=== PATIENT | female | born 1955 | race Caucasian/White ===

== ENCOUNTER 2018-11-18 12:03 | Outpatient (CLI) | payer BC ==
[~2018-11-18 12:03] MED LIST: IOHEXOL 180 MG/ML 10 ML VIAL. IJ ONE; LIDOCAINE WITH 8.4% SOD BICARB 3 ML DISP.SYRIN. INJ ONE
[2018-11-18] MEDS ORDERED: IOHEXOL 180 MG/ML 10 ML VIAL. IT ONE (12:30)
[2018-11-18] MEDS ORDERED: LIDOCAINE WITH 8.4% SOD BICARB 3 ML DISP.SYRIN. INJ ONE (12:30)
[2018-11-18 13:43] VITALS: BP 128/82
--- NOTE | 2018-11-18 14:24 | NUR ---
Discharge Note: WILLIAMS PRATT Discharge instructions and discharge home medications reviewed with Patient and a copy given. All questions have been answered and understanding verbalized. Patient alert and oriented x4, follows all commands, walks without difficulty and tolerates PO fluids. The following instructions and handouts were given: Discharge Instructions for Myelogram, patient verbalized understanding. Discontinued lines and drains: NONE. Patient discharged home with friend via private vehicle.
--- NOTE | 2018-11-18 14:50 | RAD ---
Lumbar myelogram, 11/18/2018: History: Lumbar reticular apical, left-sided pain Under local anesthesia, aseptic conditions and fluoroscopic guidance a lumbar puncture was performed at the mid L2 level utilizing a 25-gauge Zachary spinal needle. Good clear CSF flow was obtained following which 14 cc of Omnipaque 180 was injected into the thecal sac. The spinal needle was then removed and hemostasis obtained. Appropriate digital imaging was then performed. 2.7 minutes of fluoroscopy time was utilized. 13 fluoroscopic spot images were recorded. The patient tolerated the procedure well and was sent to CT in good condition. The following findings are delineated on the myelogram: 1. There is a mild right convexity lumbar scoliosis. 2. There are moderate anterior extradural defects at L1-2 and L2-3 with mild anterior extradural defects at L3-4 and L4-5. There are mild posterior extradural defects at L1-2 and L2-3 with borderline narrowing of the central spinal canal at those 2 levels in the upright position. 3. No significant subluxation or instability was identified on upright lateral flexion and extension imaging. 4. There is symmetric opacification of the nerve root sleeves in the lower lumbar spine. CT of the lumbar spine-post myelogram, 11/18/2018: Multidetector CT imaging was performed with multiplanar reconstructions produced. The following findings are delineated: 1. At the L1-2 level there is moderate broad-based posterior disc bulging. There is mild facet joint arthropathy on the left. The central spinal canal is not significantly stenotic in the supine position. There is mild left foraminal narrowing. 2. At L2-3 there is a vacuum disc phenomena with endplate sclerosis, worst on the left. There is mild posterior disc bulging with abnormal tissue extending into the left neural foramen. The appearance suggests a herniated disc fragment versus scarring. There is severe associated encroachment upon the left neural foramen at this level. The central spinal canal and right neural foramina are well preserved. 3. At L3-4 there is mild posterior disc bulging. There are mild degenerative changes involving the facet joints. The central spinal canal is well-maintained. There is only mild inferior foraminal narrowing bilaterally. 4. At L4-5 there is disc space narrowing with endplate sclerosis and marginal spurring, worst on the right. There is mild posterior disc bulging and marginal spurring. There is moderate facet joint arthropathy, worse on the right. There appears to be an old laminectomy defect on the left. The central spinal canal is well-maintained. There is moderate right foraminal encroachment. There is only mild left foraminal narrowing. 5. The L5-S1 disc space is fused. There are prominent anterior and posterior spurs. There is moderate bilateral facet joint arthropathy. The thecal sac at this level is small. There is no significant narrowing of the central spinal canal. There is only mild bony foraminal narrowing on the left. IMPRESSION: 1. Mild lumbar scoliosis with moderate multilevel degenerative change as described above. 2. Fusion of the L5-S1 disc space. 3. Severe degenerative disc disease at L4-5 with moderate right foraminal encroachment. 4. Severe degenerative disc disease at L2-3 with a density encroaching upon the left neural foramen most likely representing a herniated disc fragment. PQRS Compliance Statement: One or more of the following individualized dose reduction techniques were utilized for this examination: 1. Automated exposure control 2. Adjustment of the mA and/or kV according to patient size 3. Use of iterative reconstruction technique
[2018-12-22] MEDS ORDERED: LISI10TA2 PO (14:00)
[2018-12-22] MEDS ORDERED: PRAV40TA2 PO (14:00)
[2018-12-22] MEDS ORDERED: ZALE10CA PO (14:00)
[2018-12-22] MEDS ORDERED: PANT20TA2 PO (14:00)
[2018-12-22] MEDS ORDERED: CYAN-25 PO (14:00)
[2018-12-22] MEDS ORDERED: CELE200C PO (14:00)
[2018-12-22] MEDS ORDERED: CARV6.2511 PO (14:00)
[2018-12-22] MEDS ORDERED: ASPI-630 PO (14:00)
[2018-12-22] MEDS ORDERED: LEVO100T5 PO (14:00)
== END 2018-11-18 14:30 | disposition home or self-care (01) ==
LOC: RAD 12:03
PROVIDERS: ATTEND Neurological Surgery
DX: M51.16 Intervertebral disc disorders with radiculopathy, lumbar region (principal); M48.061 Spinal stenosis, lumbar region without neurogenic claudication; M41.86 Other forms of scoliosis, lumbar region; Z88.8 Allergy status to other drugs, medicaments and biological substances
CPT/HCPCS: 62304; 72132; Q9965; 72265

== ENCOUNTER → 2018-12-20 | Outpatient (CLI) | payer BC ==
[~2018-12-20] MED LIST changes: +ASPI-630 PO; +CARV6.2511 PO; +CELE200C PO; +CYAN10005 PO; +DOCU-109 PO; +HYDR-3164 PO; -IOHEXOL 180 MG/ML 10 ML VIAL. IJ ONE; +LEVO100T5 PO; -LIDOCAINE WITH 8.4% SOD BICARB 3 ML DISP.SYRIN. INJ ONE; +LISI10TA2 PO; +METH-38 PO; +PANT20TA2 PO; +PRAV40TA2 PO; +ZALE10CA PO
[2018-12-20 16:37] LABS: BASO # 0.1 x10^3/uL (0.0-0.2); BASO % 1 % (0-3); EOS # 0.6 x10^3/uL (0.0-0.7); EOS % 7 % (0-3); HEMATOCRIT 41.3 % (36.0-47.0); HEMOGLOBIN 13.6 g/dL (12.0-15.5); LYMPH # 2.3 x10^3/uL (1.0-4.8); LYMPH % 27 % (24-48); MEAN CORPUSCULAR HEMOGLOBIN 29 pg (25-35); MEAN CORPUSCULAR HGB CONC 33 g/dL (31-37); MEAN CORPUSCULAR VOLUME 88 fL (79-100); MONO # 0.5 x10^3/uL (0.0-1.1); MONO % 6 % (0-9); NEUT % 59 % (31-73); PLATELET COUNT 208 x10^3/uL (140-400); RED BLOOD COUNT 4.68 x10^6/uL (3.50-5.40); RED CELL DISTRIBUTION WIDTH 14.4 % (11.5-14.5); WHITE BLOOD COUNT 8.6 x10^3/uL (4.0-11.0)
[2018-12-20 16:58] LABS: ALBUMIN 3.9 g/dL (3.4-5.0); ALBUMIN/GLOBULIN RATIO 1.1 (1.0-1.7); CALCIUM 9.2 mg/dL (8.5-10.1); CREATININE 1.3 mg/dL (0.6-1.0); GFR 41.5; POTASSIUM 3.7 mmol/L (3.5-5.1); TOTAL BILIRUBIN 0.3 mg/dL (0.2-1.0); TOTAL PROTEIN 7.5 g/dL (6.4-8.2)
== END | disposition home or self-care (01) ==
LOC: SURGPAT 13:39
PROVIDERS: ATTEND Neurological Surgery
DX: Z01.818 Encounter for other preprocedural examination (principal); M51.16 Intervertebral disc disorders with radiculopathy, lumbar region; Z88.1 Allergy status to other antibiotic agents; Z88.2 Allergy status to sulfonamides; Z88.8 Allergy status to other drugs, medicaments and biological substances
CPT/HCPCS: 36415; 80053; 85025; 87641

== ENCOUNTER 2018-12-30 07:55 | Day surgery (SDC) | payer BC ==
[~2018-12-30] VITALS: Ht 162.6 cm; Wt 78.0 kg
[~2018-12-30 07:55] MED LIST changes: +BACITRACIN 50,000 UNIT in IV NORMAL SALINE 1000ML BAG 1,000 ML IRR ONE; +BUPIVAC MPF-EPI 0.5%-1:200000 30 ML VIAL. ONE; -DOCU-109 PO; +GELATIN SPONGE SIZE 100. ONE; -HYDR-3164 PO; +IV RINGERS,LACTATED 1000ML 1,000 ML IV SCH; +KETOROLAC 60 MG/2 ML INJ FOR OR. ONE; +LIDOCAINE 1% PF 2 ML VIAL. ID PRN; -METH-38 PO; +ONDANSETRON PF 4 MG/2 ML VIAL. IV PRN; +PROCHLORPERAZINE 10 MG/2 ML VIAL. IV PRN; +ROCURONIUM 50 MG/5 ML VIAL. ONE; +THROMBIN TOPICAL 20,000 UNIT SPRAY.SYRN KIT TP ONE; +fentaNYL PF VIAL 100 MCG/2 ML VIAL IV PRN
[2018-12-30] MEDS ORDERED: LIDOCAINE 2% PF Vial for OR 5 ML VIAL. ONE (08:03)
[2018-12-30] MEDS ORDERED: FAMOTIDINE 20 MG/2 ML VIAL ONE (08:03)
[2018-12-30] MEDS ORDERED: MIDAZOLAM HCL/PF 2 MG/2 ML VIAL. ONE (08:04)
[2018-12-30] MEDS ORDERED: REMIFENTANIL 2 MG VIAL. IV ONE (08:04)
[2018-12-30] MEDS ORDERED: PROPOFOL 50 ML IV ONE ×2 (08:04→11:57)
[2018-12-30] MEDS ORDERED: fentaNYL PF VIAL 100 MCG/2 ML VIAL ONE ×2 (08:04→13:10)
--- NOTE | 2018-12-30 09:50 | PREOP HP ---
DATE OF SERVICE: 12/30/2018 PREOP MARITA Lester dictating for Dr. Parrish Liz. The patient is a pleasant 63-year-old who is having difficulty with low back pain along with pain, which radiates into her left hip, left inguinal region and anterior thigh. The problem has been present for many months. She says it began with lifting. She rates her pain as an 8/10. Lifting makes her pain much worse. Sitting helps her. PAST MEDICAL HISTORY: Arthritis, headaches and migraines, heart attack or failure, heart trouble, hypertension, and thyroid disease. PAST SURGICAL HISTORY: Cholecystectomy, carpal tunnel release, finger trigger, appendectomy, lumbar laminectomy. FAMILY HISTORY: Diabetes, heart problems and hypertension. 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 . Denies substance abuse. Drinks alcohol 1-2 times per year. Drinks soda daily. ALLERGIES: AMOXICILLIN, CEPHALEXIN, HYDROCODONE, POTASSIUM, SULFA, AND TETRACYCLINE. CURRENT MEDICATIONS: None confirmed. REVIEW OF SYSTEMS: A 12-point review of systems was obtained and is noncontributory except that mentioned above. PHYSICAL EXAMINATION: NEUROSURGERY EXAMINATION: GENERAL APPEARANCE: Alert, pleasant, no acute distress. HEENT: Head atraumatic and normocephalic. SKIN: Warm and dry, well-healed lumbar incision. MUSCULOSKELETAL: Lumbar paraspinal muscle bulk is normal, restricted range of motion of lumbar spine, [id number] tenderness of lumbar spine with palpation, normal range of motion of the lower extremities bilaterally. EXTREMITIES: No clubbing, cyanosis or edema. NEUROLOGIC: Alert and oriented x 3. Normal recent and remote memory. Strength 5/5 in bilateral lower extremities except for 4+/5 hip flexor on the left. Sensory is intact to light touch in the lower extremities bilaterally. Reflexes are present and symmetric in bilateral lower extremities. Positive femoral stretch test on the left. Negative straight leg raising bilaterally. Normal gait. IMAGING DATA: Reviewed. I reviewed her lumbar myelogram and post-myelogram CT scan. At L2-L3, there is abnormal tissue extending into the left neural foramen, which appears to be herniated disk. This is associated with severe encroachment upon the left neural foramen and nerve root. ASSESSMENT: Intervertebral disk disorders with radiculopathy, lumbar region. PLAN: The patient has a left-sided foraminal herniated disk at L2-L3. She is in severe pain. My recommendation is that she consider lumbar microsurgery to decompress L2-L3. I will perform a left transverse microdiskectomy, microdecompression to decompress the nerve root. I spoke with her about her surgery and the risks. She understands. She would like to go ahead. We will make the arrangements. PARRISH LIZ MD DR: ALEKS/lynette JOB#: [id number] / [id number]
[2018-12-30] MEDS ORDERED: PHENYLEPHRINE 10 MG/ML VIAL. ONE (10:44)
[2018-12-30] MEDS ORDERED: GLYCOPYRROLATE 1 MG/5 ML VIAL. ONE (10:52)
--- NOTE | 2018-12-30 11:00 | DISCH ---
DISCHARGE INSTRUCTIONS Condition on Discharge Condition on Discharge: Stable Activity After Discharge Activity Instructions for Disc: Activity as tolerated, Avoid exertion Other activity instructions: no driving for a week Bathing Instructions: Shower-keep dressing dry Lifting Instructions after Dis: No heavy lifting, No pulling or pushing, Do not lift >10 pounds Diet after Discharge Additional Diet Restrictions: resume home diet Wound Incision Care Wound/Incision Care: Ice to area for comfort Other wound/incision instructi: may remove dressing in 48 hrs if dry then may shower, no soaking Contacting the after DC Call your doctor for: Concerns you may have Follow-Up Follow up with: Dr. Liz's nurse in 2 weeks [phone] JONG LIZ MD Dec 30, 2018 11:00
[2018-12-30] MEDS ORDERED: METH-38 PO (11:03)
[2018-12-30] MEDS ORDERED: DOCU-109 PO (11:04)
[2018-12-30] MEDS ORDERED: NEOSTIGMINE 10 MG/10 ML VIAL. ONE (12:08)
[2018-12-30] MEDS ORDERED: DESFLURANE > 120 MINUTES IH ONE (12:11)
--- NOTE | 2018-12-30 13:00 | OP ---
DATE OF SURGERY: 12/30/2018 PREOPERATIVE DIAGNOSES: Foraminal disc herniation L2-L3, left, with left lumbar radiculopathy. POSTOPERATIVE DIAGNOSES: Foraminal disc herniation L2-L3, left, with left lumbar radiculopathy. OPERATION PERFORMED: Transforaminal microdiscectomy L2-L3, left, with decompression of dura and nerve root. The operation was done with EMG monitoring, fluoroscopy, microscopic dissection. SURGEON: Parrish Liz M.D. NEON TUBE PUMPER: GER Fox, assisted with the surgery. She assisted with the exposure, the transforaminal microdecompression as well as the closure. OPERATIVE INDICATIONS: The patient is a pleasant 63-year-old woman who developed intractable back and left leg pain, which failed conservative management. On imaging studies, she was found to have an element of degenerative scoliosis combined with a foraminal disc herniation L2-L3 on the left. I recommended lumbar microsurgical decompression. I spoke with her about the surgery and the risks. I explained that the underlying problem was related to her degenerative scoliosis and the stresses caused by this, but that I was willing to perform a microdecompression at L2-L3 on the left and see if this would help her. I spoke about the technique of the operation, the expected postoperative course. She understood, and she wished to go ahead. DESCRIPTION OF PROCEDURE: Upon general endotracheal anesthesia, the patient was positioned prone on the Alberto frame. Her lumbar region was prepped and draped in standard fashion. GENNARO hose and AV impulse boots were applied for DVT prophylaxis and microscope was draped. Fluoroscopy was draped and brought into field. Monitoring was established. Ancef 2 grams was given less than 1 hour prior to initiation of the surgery. Using fluoroscopic guidance, an incision was made over the L2-L3 interspace. I dissected down skin and subcutaneous tissue, reflected the paraspinal muscles and placed a [place] microdisk retractor. I brought in the microscope and using the high speed air drill, I burred down a hemilaminotomy and then worked superiorly to find the takeoff of L2 root and then followed this out laterally performing a transforaminal exposure. The root was compressed from hypertrophic bone and ligament as well as underlying foraminal disc, and I gently retracted the root superiorly, incised the ligament and annulus and began to tease back disc fragments, and then, I entered the disc space and performed a discectomy with pituitary rongeurs. As I worked, the region became well decompressed and the nerve actually moved inferolaterally to much more normal position. I explored carefully. There were no retained fragments. The region was very well decompressed. I irrigated copiously. I had excellent hemostasis throughout the operation. I removed the retractors, obtained hemostasis in the muscle. I closed the wound in layers with absorbable suture. The skin was closed with 4-0 subcuticular stitch. The operation went very well , and the patient was taken to the recovery room in excellent condition and quite pleased with the surgery. PARRISH LIZ MD DR: ALEKS/lynette JOB#: [id number] / [id number] RAMESH
[2018-12-30] MEDS ORDERED: HYDR-3164 PO (13:01)
[2018-12-30] MEDS ORDERED: HYDROcodone/APAP 5/325MG 1 TAB TABLET PO ONE ×2 (13:30)
[2018-12-30 15:07] VITALS: BP 136/70
== END 2018-12-30 15:07 | disposition home or self-care (01) ==
LOC: SURG 07:55
PROVIDERS: ATTEND Neurological Surgery
DX: M51.16 Intervertebral disc disorders with radiculopathy, lumbar region (principal); I10 Essential (primary) hypertension; G43.909 Migraine, unspecified, not intractable, without status migrainosus; Z88.1 Allergy status to other antibiotic agents; Z88.5 Allergy status to narcotic agent; Z88.2 Allergy status to sulfonamides; Z88.8 Allergy status to other drugs, medicaments and biological substances; M19.90 Unspecified osteoarthritis, unspecified site; Z90.49 Acquired absence of other specified parts of digestive tract; Z98.890 Other specified postprocedural states; Z82.49 Family history of ischemic heart disease and other diseases of the circulatory system; Z83.3 Family history of diabetes mellitus; Z72.89 Other problems related to lifestyle
CPT/HCPCS: 63030; 97162; 97530; A7015; G8978; G8979; G8980; J0696; J1885; J2001; J2250; J2704; J2710; J3010; J3490; J7030; J7120; 76000